=== PATIENT | female | born 2000 | race Caucasian/White ===

== ENCOUNTER 2023-01-26 22:57 | Outpatient (RCR) | payer OTHER, SELFPAY ==
[2023-01-27] MEDS: RABIES IMMUNE GLOBULIN 150 UNIT/ML INJ 1260 UNIT INFILTRATI (00:26)
== END 2023-01-28 13:36 | disposition home or self-care (01) ==
PROVIDERS: Visit Provider Nurse Practitioner Family
DX: Z20.3 Contact with and (suspected) exposure to rabies (principal); Z23 Encounter for immunization
CPT/HCPCS: 90377; 90471; 90675; 96372